=== PATIENT | female | born 1970 | race Caucasian/White ===

== ENCOUNTER 2021-11-07 08:22 | Inpatient (IN) | payer SELFPAY ==
[2021-11-07] MEDS ORDERED: MORPHINE 4 MG/ML SYR ONE ×2 (08:49→10:47)
[2021-11-07] MEDS ORDERED: ONDANSETRON 4 MG/2 ML VIAL ONE ×3 (08:50→15:20)
[2021-11-07] MEDS ORDERED: NA CHLORIDE 0.9% 1,000 ML ONE ×3 (08:50→10:33)
[2021-11-07 09:16] LABS: Absolute Lymphocytes (CBC) 2.5 K/uL (0.7-4.9); Hematocrit 43.1 % (36.0-45.0); Lymphocytes % 12.5 % (15.3-44.8); MPV 8.3 fL (7.6-11.3); RBC Red Blood Cell Count 4.55 M/uL (3.86-4.86)
[2021-11-07] MEDS ORDERED: MORPHINE 2 MG/ML SYR ONE (09:17)
[2021-11-07] MEDS ORDERED: PANTOPRAZOLE 40 MG INJ ONE (09:17)
[2021-11-07 09:26] LABS: Albumin 3.9 g/dL (3.4-5.0); Bilirubin Total 0.8 mg/dL (0.2-1.0); Potassium 3.7 mmol/L (3.5-5.1); Protein, Total 7.9 g/dL (6.4-8.2)
--- NOTE | 2021-11-07 10:14 | RAD REPORT ---
EXAM DESCRIPTION: CT - Abdomen Pelvis W Contrast - 11/07/2021 9:59 am CLINICAL HISTORY: Abdominal pain, acute, nonlocalized COMPARISON: CT ABD PELVIS W CONTRAST dated 10/16/2013 TECHNIQUE: Biphasic, helical CT imaging of the abdomen and pelvis was performed following 100 ml non -ionic IV contrast. No oral contrast administered. All CT scans are performed using dose optimization technique as appropriate and may include automated exposure control or mA/KV adjustment according to patient size. FINDINGS: No suspicious findings in the lung bases. The liver, spleen, and pancreas show no suspicious findings. Gallbladder and biliary tree are also wi thout suspicious finding. Symmetric renal function is seen with no hydronephrosis or suspicious renal mass. No pyelonephritis o r acute parenchymal process. No bladder abnormalities. No adrenal abnormalities. Uterus is absent. Ov jose are absent or atrophic. No FUSING MACHINE FEEDER abnormality seen. Stomach and small bowel show no suspicious findings. Appendix is grossly abnormal. There is a 14 mill imeter irregularly-shaped appendicolith at the base. Tip of the cecum shows wall thickening. The retr ocecal appendix is dilated to 13 mm. Additional mineralization is seen in the lumen at the tip of the appendix. Small amount of fluid in stranding are seen in the periappendiceal fatty tissues. Slightly more prominent stranding is seen at the tip of the cecum. No extraluminal air. No abscess or venus p erforation seen. No hernia, mass or bulky lymphadenopathy. No suspicious bony findings. Prominent aortoiliac atherosclerotic calcifications are present. Findings telephoned to doctor Clemens 10:10 a.m. IMPRESSION: Acute appendicitis. The appendix is retrocecal. Fluid and inflammatory stranding seen in the periappendiceal fat. No extraluminal air, abscess or oth er evidence for venus perforation.
[2021-11-07] MEDS ORDERED: PIPERACIL/TAZO 3.375 GM VIAL IV ONE (10:22)
[2021-11-07] MEDS ORDERED: NA CHLORIDE 0.9% 100 ML ONE (10:22)
--- NOTE | 2021-11-07 10:22 | EDPHYS ---
Physician Documentation [facility] [place] Name: Karla Newsome Age: 51 yrs Sex: Female : 1970 Arrival Date: 11/07/2021 Time: 08:26 Bed 6 Private MD: DAVID Physician Henry Clemens HPI: 11/07 08:44 This 51 yrs old Female presents to ER via Ambulatory with complaints of Abdominal Pain, cp Vomiting. 08:44 The patient presents with abdominal pain right lower quadrant. cp 08:45 Onset: The symptoms/episode began/occurred 3 day(s) ago. cp 08:45 The symptoms radiate to left lower quadrant and right flank. Associated signs and cp symptoms: Pertinent positives: nausea and vomiting, Pertinent negatives: blood in stools, chest pain, constipation, diarrhea, dysuria, fever. The symptoms are described as stabbing. Historical: - Allergies: 08:30 No Known Allergies; vg1 - Home Meds: 08:30 None [Active]; vg1 - PMHx: 08:30 cyst on ovary; Hypertension; UTI; vg1 - PSHx: 08:30 section; Total abdominal hysterectomy; bp - Immunization history:: Client reports having NOT received the Covid vaccine. - Social history:: Smoking status: Patient reports the use of cigarette tobacco products, denies chronic smoking, but will smoke occasionally, Patient uses alcohol, occasionally. ROS: 08:50 Constitutional: Negative for body aches, chills, fever. cp 08:50 Eyes: Negative for injury, pain, redness, and discharge. cp 08:50 ENT: Negative for ear pain, sore throat, difficulty swallowing, difficulty handling secretions. 08:50 Cardiovascular: Negative for chest pain, palpitations. 08:50 Respiratory: Negative for cough, shortness of breath, wheezing. 08:50 Abdomen/GI: Positive for abdominal pain, nausea and vomiting, anorexia, Negative for diarrhea, constipation. 08:50 : Negative for urinary symptoms, flank pain. 08:50 Neuro: Negative for altered mental status, headache, weakness. 08:50 All other systems are negative. Exam: 08:55 Constitutional: The patient appears in no acute distress, alert, awake, non-toxic, well cp developed, well nourished, uncomfortable. 08:55 Head/Face: Normocephalic, atraumatic. cp 08:55 Eyes: Periorbital structures: appear normal, Conjunctiva: normal, no exudate, no injection, Lids and lashes: appear normal, bilaterally. 08:55 ENT: External ear(s): are unremarkable, Nose: is normal, Mouth: Lips: moist, Oral mucosa: pink and intact, moist, Posterior pharynx: Airway: normal. 08:55 Chest/axilla: Inspection: normal, Palpation: is normal, no crepitus, no tenderness. 08:55 Cardiovascular: Rate: normal, Rhythm: regular. 08:55 Respiratory: the patient does not display signs of respiratory distress, Respirations: normal, no use of accessory muscles, no retractions, labored breathing, is not present, Breath sounds: are clear throughout, no decreased breath sounds, no stridor, no wheezing. 08:55 Abdomen/GI: Inspection: abdomen appears normal, Bowel sounds: active, all quadrants, Palpation: soft, in all quadrants, severe abdominal tenderness, in the right lower quadrant, rebound tenderness, is not appreciated, voluntary guarding, is elicited in the right lower quadrant. 08:55 Back: CVA tenderness, is absent. 08:55 Skin: no rash present. 08:55 Neuro: Orientation: to person, place \\T\\ time. Mentation: is normal, Motor: moves all fours, strength is normal. 10:37 ECG was reviewed by the Attending Physician. cp Vital Signs: 08:29 BP 148 / 79; Pulse 80; Resp 18; Temp 98.8(O); Pulse Ox 100% ; Weight 56.7 kg; Height 5 vg1 ft. 3 in. (160.02 cm); Pain 6/10; 09:30 BP 137 / 75; Pulse 78; Resp 17; Pulse Ox 100% ; bp 11:30 BP 112 / 93; Pulse 59; Resp 16; Pulse Ox 99% ; bp 13:30 BP 106 / 71; Pulse 63; Resp 16; Pulse Ox 99% ; bp 08:29 Body Mass Index 22.14 (56.70 kg, 160.02 cm) vg1 MDM: 08:41 Patient medically screened. cp 09:00 Differential diagnosis: appendicitis, diverticulitis, non-specific abd pain, cp Pyelonephritis, Ureterolithiasis, urinary tract infection, colitis. 10:15 Data reviewed: vital signs, nurses notes, lab test result(s), radiologic studies, CT cp scan. 10:15 Counseling: I had a detailed discussion with the patient and/or guardian regarding: the cp historical points, exam findings, and any diagnostic results supporting the discharge/admit diagnosis, lab results, radiology results, the need for further work-up and treatment in the hospital. Response to treatment: the patient's symptoms have mildly improved after treatment. Physician consultation: Reji Melgar MD was called at 10:10, was contacted at 10:10, regarding admission, to the telemetry unit. patient's condition, would like admission per Dr. Geremias Mcghee. 11/07 08:41 Order name: CBC with Diff; Complete Time: 09:33 bp 11/07 09:33 Interpretation: Normal except: WBC 19.8; DEREK% 77.3; LYM% 12.5; NEUT A 15.3; MNA 1.8. cp 11/07 08:41 Order name: CMP; Complete Time: 09:33 bp 11/07 09:33 Interpretation: Normal except: CL 109; GLUC 119; GFR 85; AST 12; GLOB 4.0; A/G 1.0. cp 11/07 08:41 Order name: Lipase; Complete Time: 09:33 bp 11/07 09:33 Interpretation: Reviewed. cp 11/07 10:18 Order name: PT-INR; Complete Time: 11:22 cp 11/07 10:18 Order name: Ptt, Activated; Complete Time: 11:22 cp 11/07 10:18 Order name: Urine Microscopic Only; Complete Time: 11:22 cp 11/07 08:41 Order name: CT Abd/Pelvis - IV Contrast Only; Complete Time: 11:22 bp 11/07 10:18 Order name: XRAY Chest (1 view); Complete Time: 12:59 cp 11/07 10:32 Order name: COVID-19 SARS RT PCR (Document "Date of Onset" if Symptomatic); Complete cp Time: 12:59 11/07 10:53 Order name: Urine Dipstick-Ancillary; Complete Time: 11:22 EDMS 11/07 08:41 Order name: IV Saline Lock; Complete Time: 09:02 bp 11/07 08:41 Order name: Labs collected and sent; Complete Time: 09:02 bp 11/07 10:18 Order name: EKG; Complete Time: 10:19 cp 11/07 10:18 Order name: EKG - Nurse/Tech; Complete Time: 10:32 cp 11/07 10:18 Order name: Urine Dipstick-Ancillary (obtain specimen); Complete Time: 10:54 cp EC:37 Rate is 62 beats/min. Rhythm is regular. IA interval is normal. QRS interval is normal. cp QT interval is normal. T waves are Inverted in lead aVR. Interpreted by me. Reviewed by me. Administered Medications: 08:50 Drug: NS 0.9% 1000 ml Route: IV; Rate: 1 bolus; Site: right forearm; bp 13:50 Follow up: IV Status: Completed infusion; IV Intake: 1000ml bp 08:50 Drug: Zofran (Ondansetron) 4 mg Route: IVP; Site: right forearm; bp 10:32 Follow up: Response: No adverse reaction bp 08:50 Drug: morphine 4 mg Route: IVP; Infused Over: 4 mins; Site: right forearm; bp 10:32 Follow up: Response: Pain is decreased bp 10:30 Drug: Zosyn (piperacillin-tazobactam) 3.375 grams Route: IVPB; Infused Over: 60 mins; bp Site: right forearm; 13:50 Follow up: IV Status: Completed infusion; IV Intake: 100ml bp 10:30 Drug: NS 0.9% 1000 ml Route: IV; Rate: 100 ml/hr; Site: right forearm; bp 13:50 Follow up: IV Status: Infusion continued upon admission bp 10:45 Drug: morphine 4 mg Route: IVP; Infused Over: 4 mins; Site: right forearm; bp 13:49 Follow up: Response: No adverse reaction; Pain is decreased bp Disposition Summary: 11/07/21 10:22 Hospitalization Ordered Hospitalization Status: Observation cp Location: Telemetry/MedSurg (observation) cp Condition: Stable cp Problem: new cp Symptoms: have improved cp Bed/Room Type: Standard cp Room Assignment: cp Provider: Geremias Mcghee(11/07/21 11:29) cp Diagnosis - Acute appendicitis with localized peritonitis cp Forms: - Medication Reconciliation Form cp - SBAR form cp Signatures: Dispatcher [employer] EDMS Henry Rincon PA PA cp Epifanio Blas RN RN bp Faye Dietz RN RN vg1 Corrections: (The following items were deleted from the chart) 11: 10:22 Reji Melgar cp cp
--- NOTE | 2021-11-07 10:22 | ER ---
Nurse's Notes [facility] [place] Name: Karla Newsome Age: 51 yrs Sex: Female : 1970 Arrival Date: 11/07/2021 Time: 08:26 Bed 6 Private MD: Diagnosis: Acute appendicitis with localized peritonitis Presentation: 11/07 08:29 Chief complaint: Patient states: lower ABD pain x 3 days and NV since last night. vg1 Coronavirus screen: Vaccine status: Patient reports being unvaccinated. Client denies travel out of the [place] in the last 14 days. Ebola Screen: Patient denies exposure to infectious person. Patient denies travel to an Ebola-affected area in the 21 days before illness onset. Initial Sepsis Screen: Does the patient meet any 2 criteria? No. Patient's initial sepsis screen is negative. Does the patient have a suspected source of infection? No. Patient's initial sepsis screen is negative. Risk Assessment: Do you want to hurt yourself or someone else? Patient reports no desire to harm self or others. Onset of symptoms was November 04, 2021. 08:29 Method Of Arrival: Ambulatory vg1 08:29 Acuity: LIOR 3 vg1 Triage Assessment: 08:29 General: Appears uncomfortable, Behavior is calm, cooperative. Pain: Complains of pain vg1 in right lower quadrant and left lower quadrant. GI: Abdomen is flat, Reports nausea, vomiting, Patient currently denies diarrhea. Historical: - Allergies: 08:30 No Known Allergies; vg1 - Home Meds: 08:30 None [Active]; vg1 - PMHx: 08:30 cyst on ovary; Hypertension; UTI; vg1 - PSHx: 08:30 section; Total abdominal hysterectomy; bp - Immunization history:: Client reports having NOT received the Covid vaccine. - Social history:: Smoking status: Patient reports the use of cigarette tobacco products, denies chronic smoking, but will smoke occasionally, Patient uses alcohol, occasionally. Screenin:33 Abuse screen: Denies threats or abuse. Nutritional screening: No deficits noted. ap3 Tuberculosis screening: No symptoms or risk factors identified. Fall Risk None identified. Assessment: 08:30 General: SEE TRIAGE NOTE. bp 09:35 Reassessment: No changes from previously documented assessment. Patient and/or family bp updated on plan of care and expected duration. Pain level reassessed. 09:53 Reassessment: PT TO CT. bp 11:30 Reassessment: No changes from previously documented assessment. Patient and/or family bp updated on plan of care and expected duration. Pain level reassessed. ADMIT IN PROCESS. DR ARRIETA AT B/S. 13:30 Reassessment: SURGERY PENDING. PT LAST PO LAST PM. bp Vital Signs: 08:29 BP 148 / 79; Pulse 80; Resp 18; Temp 98.8(O); Pulse Ox 100% ; Weight 56.7 kg; Height 5 vg1 ft. 3 in. (160.02 cm); Pain 6/10; 09:30 BP 137 / 75; Pulse 78; Resp 17; Pulse Ox 100% ; bp 11:30 BP 112 / 93; Pulse 59; Resp 16; Pulse Ox 99% ; bp 13:30 BP 106 / 71; Pulse 63; Resp 16; Pulse Ox 99% ; bp 08:29 Body Mass Index 22.14 (56.70 kg, 160.02 cm) vg1 ED Course: 08:26 Patient arrived in ED. rg4 08:29 Arm band placed on. vg1 08:30 Triage completed. vg1 08:33 Epifanio Blas, GUILLE is Primary Nurse. bp 08:40 Henry Rincon PA is PHCP. cp 08:41 Henry Clemens MD is Attending Physician. cp 08:50 Inserted saline lock: 20 gauge in right forearm, using aseptic technique. Blood bp collected. 09:39 Patient has correct armband on for positive identification. Bed in low position. Call bp light in reach. Side rails up X2. Adult w/ patient. 10:01 CT Abd/Pelvis - IV Contrast Only In Process Unspecified. EDMS 10:21 Reji Arrieta MD is Hospitalizing Provider. cp 10:43 XRAY Chest (1 view) In Process Unspecified. EDMS 11:29 Geremias Mcghee is Hospitalizing Provider. cp Administered Medications: 08:50 Drug: NS 0.9% 1000 ml Route: IV; Rate: 1 bolus; Site: right forearm; bp 13:50 Follow up: IV Status: Completed infusion; IV Intake: 1000ml bp 08:50 Drug: Zofran (Ondansetron) 4 mg Route: IVP; Site: right forearm; bp 10:32 Follow up: Response: No adverse reaction bp 08:50 Drug: morphine 4 mg Route: IVP; Infused Over: 4 mins; Site: right forearm; bp 10:32 Follow up: Response: Pain is decreased bp 10:30 Drug: Zosyn (piperacillin-tazobactam) 3.375 grams Route: IVPB; Infused Over: 60 mins; bp Site: right forearm; 13:50 Follow up: IV Status: Completed infusion; IV Intake: 100ml bp 10:30 Drug: NS 0.9% 1000 ml Route: IV; Rate: 100 ml/hr; Site: right forearm; bp 13:50 Follow up: IV Status: Infusion continued upon admission bp 10:45 Drug: morphine 4 mg Route: IVP; Infused Over: 4 mins; Site: right forearm; bp 13:49 Follow up: Response: No adverse reaction; Pain is decreased bp Medication: 08:33 VIS not applicable for this client. ap3 Intake: 13:50 IV: 100ml; Total: 100ml. bp 13:50 IV: 1000ml; Total: 1100ml. bp Outcome: 10:22 Decision to Hospitalize by Provider. cp 14:28 Patient left the ED. ll1 Signatures: Dispatcher [employer] EDMS Henry Rincon PA PA cp Dora Dietz rg4 Epifanio Blas RN RN bp Meseret Pineda RN RN ap3 Faye Dietz, RN RN vg1 Consuelo Gorman RN RN ll1 Corrections: (The following items were deleted from the chart) 08:31 08:29 Pulse 80bpm; Resp 18bpm; Pulse Ox 100%; Temp 98.8F Oral; 56.7 kg; Height 5 ft. 3 vg1 in.; BMI: 22.1; Pain 6/10; vg1
[2021-11-07 10:42] LABS: Protime INR 0.99
[2021-11-07 10:53] LABS: Urine Blood 2+ (Negative); Urine Glucose Negative (Negative); Urine Protein Negative (Negative); Urine Specific Gravity <=1.005 (1.005-1.030); Urine pH 5.5 (5.0-7.0)
[2021-11-07 10:54] LABS: Urine RBC <5 /HPF (NONE SEEN)
[2021-11-07 10:55] LABS: Urine Bacteria <20 /HPF (<20)
--- NOTE | 2021-11-07 12:43 | RAD REPORT ---
EXAM DESCRIPTION: RAD - Chest Single View - 11/07/2021 10:42 am CLINICAL HISTORY: pre op Chest pain. COMPARISON: No comparisons FINDINGS: Portable technique limits examination quality. The lungs are grossly clear. The heart is normal in size. No displaced fractures. IMPRESSION: No acute intrathoracic process suspected.
[2021-11-07] MEDS ORDERED: Ringers Lactate 0 ML IV ONE (14:04)
[2021-11-07] MEDS ORDERED: ONDANSETRON 4 MG/2 ML VIAL IV PRN (14:39)
[2021-11-07] MEDS ORDERED: MORPHINE 2 MG/ML SYR IV PRN (14:39)
[2021-11-07] MEDS: BUPIVACAINE 0.25% PF 10 ML VIAL ONE ×2 (14:57→16:19)
--- NOTE | 2021-11-07 15:05 | P.HP ---
Certification for Inpatient Patient admitted to: Inpatient With expected LOS: >2 Midnights Practitioner: I am a practitioner with admitting privileges, knowledge of patient current condition, hospital course, and medical plan of care. Services: Services provided to patient in accordance with Admission requirements found in Title 42 Section 412.3 of the Code of Federal Regulations Patient History Date of Service: 11/07/21 Reason for admission: Abdominal pain History of Present Illness: 51-year-old woman with a history of hypertension presented to the emergency department with a complaint of abdominal pain of onset 3 days ago. Patient reports abdominal pain became much severe last night, associated with vomiting, no fever or diarrhea. Patient presented to the ED this morning where CT abdomen pelvis reported acute appendicitis. General surgeon-Dr. Melgar contacted who is planning lap appendectomy. Patient admitted for further management. Allergies No Known Allergies Allergy (Unverified 08/30/17 23:26) - Past Medical/Surgical History -: Hypertension - Family History Brother -: Cancer Sister -: Cancer (Breast) - Social History Smoking Status: Current some day smoker Alcohol use: Yes CD- Drugs: No Place of Residence: Home Review of Systems Other: Except as documented, all other systems reviewed and negative. Physical Examination - Vital Signs Temperature: 98.8 F Blood Pressure: 106/71 Pulse: 63 Respirations: 16 - Physical Exam General: Alert, In no apparent distress, Oriented x3 HEENT: PERRLA, Mucous membr. moist/pink, Sclerae nonicteric Neck: Supple, JVD not distended Respiratory: Clear to auscultation bilaterally, Normal air movement Cardiovascular: No edema, Regular rate/rhythm, Normal S1 S2 Capillary refill: <2 Seconds Gastrointestinal: Normal bowel sounds, Non-distended, Tenderness (Right lower quadrant) Musculoskeletal: No swelling, No tenderness Integumentary: No rashes, No cyanosis Neurological: Normal strength at 5/5 x4 extr, Cranial nerves 3-12 intact Lymphatics: No axilla or inguinal lymphadenopathy - Studies Laboratory Data (last 24 hrs) 11/07/21 10:28: PT 10.9, INR 0.99, APTT 32.8 11/07/21 08:50: Sodium 138, Potassium 3.7, BUN 9, Creatinine 0.83, Glucose 119 H, Total Bilirubin 0.8, AST 12 L, ALT 21, Alkaline Phosphatase 89, Lipase 114 11/07/21 08:50: WBC 19.8 H, Hgb 14.9, Hct 43.1, Plt Count 375 Assessment and Plan - Problems (Diagnosis) (1) Acute appendicitis Current Visit: Yes Status: Acute (2) Leukocytosis Current Visit: Yes Status: Acute - Plan Admit to the medical floor. Supportive measures with IV fluid. N.p.o. Start IV [place] General surgery-Dr. Melgar consulted who is planning lap appendectomy today. Pain management Antiemetics. - Advance Directives Does patient have a Living Will: No Does patient have a Durable POA for Healthcare: No
[2021-11-07] MEDS ORDERED: propofoL 200 MG/20 ML VIAL IV ONE (15:18)
[2021-11-07] MEDS ORDERED: LIDOCAINE JELLY 2%- 5 ML TUBE ONE (15:19)
[2021-11-07] MEDS ORDERED: LIDOCAINE 1% MPF 5 ML VIAL ONE (15:19)
[2021-11-07] MEDS ORDERED: ROCURONIUM 50 MG/5 ML VIAL IV ONE (15:19)
[2021-11-07] MEDS ORDERED: FENTANYL CITR 100 MCG/2 ML ONE ×2 (15:19→16:45)
[2021-11-07] MEDS ORDERED: KETOROLAC 30 MG/ML INJ ONE (15:20)
[2021-11-07] MEDS ORDERED: dexAMETHasone 10 MG/ML VIAL ONE (15:20)
[2021-11-07] MEDS ORDERED: GLYCOPYRROLATE 0.2 MG/ML SYR ONE ×2 (16:32→16:51)
[2021-11-07] MEDS ORDERED: HYDRALAZINE HCL 20 MG/ML VIAL ONE (16:37)
--- NOTE | 2021-11-07 16:57 | P.OP ---
Preoperative diagnosis: Acute non-perforated Appendicitis Postoperative diagnosis: Acute non-perforated Appendicitis Primary procedure: Laparoscopic appendectomy Anesthesia: GETA + Local Estimated blood loss: <5cc Specimen: vermiform appendix Findings: inflammed thickened appendicitis with inflammatory rind Complications: None Transferred to: Recovery Room Condition: Good
[2021-11-07] MEDS: ONDANSETRON 4 MG/2 ML VIAL ONE ×2 (17:10→17:15)
[2021-11-07] MEDS: HYDROMORPHONE HCL 1 MG/ML INJ ONE ×6 (17:12→17:33)
[2021-11-07 18:02] VITALS: BMI 22.1
[2021-11-07] MEDS: NA CHLORIDE 0.9% 1,000 ML IV SCH (18:04)
[2021-11-07] MEDS: PIPER TAZO 3.375 GM in NA CHLORIDE 0.9% 100 ML IV SCH (18:04)
[2021-11-07] MEDS ORDERED: DIPHENHYDRAMINE 25 MG TAB/CAP PO PRN (19:33)
--- NOTE | 2021-11-07 20:15 | CON ---
Date of Consultation: 11/07/2021 Reason For Consultation: Appendicitis. Brief History Of Present Illness: The patient is a 51-year-old female who presents to the hospital with complaints of abdominal pain beginning approximately 3 days ago. It was in the periumb ilical, now located in the right lower quadrant, associated with some nausea and vomiting. She denie d blood in her stool or sick contacts. No recent travel. No food exposures. Past Medical History: Significant for hypertension, urinary tract infections. Past Surgical History: She has had a and hysterectomy, which was a total abdominal hystere ctomy. Allergies: NO KNOWN DRUG ALLERGIES. Home Medications: Include [id number] vitamins, she cannot recall the details, which. Smoking, she is an active everyday cigarette smoker. She denies alcohol or recreational drug use. Review of Systems: Ten-point review of systems other than HPI, denies. Physical Examination: General: She is awake, alert, and oriented. Psychiatric: She is appropriate, conversive. HEENT: She is normocephalic. Sclerae anicteric. Mucous membranes moist. Oropharynx clear. Neck: Supple without JVD. Chest: Normal to expansion and excursion. Cardiovascular: Regular rate and rhythm. Pulmonary: Clear to auscultation bilaterally. Abdomen: Soft. Positive right lower quadrant tenderness to palpation. Positive focal peritonitis i n [place] point. Well-healed surgical scars were evident. Extremities: No clubbing, cyanosis, or edema. Skin: Warm and dry. Laboratory Data: Reveals a white count 19.8, hemoglobin is 14.9, hematocrit 43.1, platelet count was 375, neutrophils 77%. PT 10.9, INR 0.9, PTT 32.8. Sodium 138, potassium 3.7, chloride 109, carbon dioxide 21, BUN 9, creatinine 0.8, glucose is 119, total bilirubin 0.8, AST 12, ALT 21, alkaline phos phatase 89, lipase is 114. COVID was negative. She had imaging performed, which included a CT of e abdomen and pelvis, officially read as acute appendicitis. Appendix is retrocecal fluid and inflam matory stranding in the periappendiceal fat. No extra luminal air, abscess, or other evidence for fr ank perforation. It is approximately 14 mm and dilated appendicolith at the base. There is retrocec al appendix dilated to 13 mm. Assessment And Plan: This is a 51-year-old female, who comes in with signs and symptoms of acute non perforated appendicitis. 1.IV fluids. 2.Antibiotic coverage. 3.I have explained the risks, benefits, and alternatives of laparoscopic possible open appendectomy including, but not limited to bleeding, infection, damage to surrounding tissues, need for further op eration and procedures. The patient agrees to proceed as indicated. KRISS/SANGEETHA Voice ID: [id number] Report ID: [id number]
[2021-11-07] MEDS: HYDROCODONE/APAP 5/325 MG TAB PO PRN (21:02)
[2021-11-08] MEDS: NA CHLORIDE 0.9% 1,000 ML IV SCH ×2 (01:28→10:39)
[2021-11-08] MEDS: PIPER TAZO 3.375 GM in NA CHLORIDE 0.9% 100 ML IV SCH ×2 (01:29→08:04)
[2021-11-08] MEDS: HYDROCODONE/APAP 5/325 MG TAB PO PRN ×2 (03:02→08:14)
--- NOTE | 2021-11-08 03:21 | OP ---
Date of Procedure: 11/07/2021 Surgeon: Reji Melgar MD, Preoperative Diagnosis: Acute nonperforated appendicitis. Postoperative Diagnosis: Acute nonperforated appendicitis. Procedure Performed: Laparoscopic appendectomy. Anesthesia: General endotracheal plus local. Estimated Blood Loss: Less than 5 mL. Specimen: Vermiform appendix. Findings: Inflamed and thickened appendicitis with inflammatory rind quite thickened and retrocecal position. Complications: None. Disposition: The patient was transferred to recovery room in good condition. Procedure In Detail: After informed consent was obtained, the patient was brought to the operating r oom, prepped and draped in the usual sterile fashion after adequate anesthesia achieved. A supraumbi lical area was anesthetized with 0.25% Marcaine, sharply incised. A 5 mm trocar was placed under dir ect visualization without evidence of complication. Two additional trocars placed, 1 in the left low er quadrant and another in the right lower quadrant. These were both 5 mm trocars placed under direc t visualization without evidence of complication. The umbilical trocar was then up-sized to 12 mm un rachna direct visualization without evidence of complication. The patient was positioned head down righ t side up position. Ratcheted grasper was used to grasp the patient's appendix from the right lower quadrant. Dissection was continued down. There was significant thick and inflammatory rind requirin g LigaSure dissection to allow for mesoappendiceal window creation. It was difficult to get past the inflammatory rind, as such I fired a MARSHAL purple load 60 stapler across the appendix and took out the midportion of the appendix to allow for easier mobilization as it was quite tortuous, thickened and stuck to the surrounding tissues. After this was removed, placed in EndoCatch and sent to the pathol ogist for examination. I then returned to the peritoneal space. Re-insufflation was obtained at thi s point. I then created a mesoappendiceal window with a Nesha retractor. Endo-MARSHAL purple load 45 was fired across the base of the appendix at the confluence of the cecum with good apposition of the tissues. The mesoappendix was taken down in its entirety using the LigaSure device. The appendiceal base was then placed in EndoCatch bag, removed from the umbilical trocar site, and sent out for path ological examination. At this point, the area was copiously irrigated and suctioned out completely d ry. No hemostatic maneuvers were required. The clips and staple lines were found to be in good jojo omic position. At this point, the patient was positioned back neutral position. Effluent was suctio ernesto out. The umbilical trocar was closed using a Brian-Raya suture passer with 0 Vicryl in a fa shion and good approximation of tissues. The remaining skin was then copiously irrigated out. The a bdomen was completely desufflated under direct visualization without evidence of complication. Both specimens were passed off to the back table at this point to be sent off the pathologist in the indiv idual EndoCatch bags. After the skin incisions copiously irrigated, they were closed with interrupte d aisha. The patient tolerated the procedure without evidence of complication and transferred to P ACU in good condition. All counts were correct at end of the case. KRISS/SANGEETHA Voice ID: [id number] Report ID: [id number]
[2021-11-08 04:14] LABS: Hematocrit 34.9 % (36.0-45.0)
[2021-11-08 04:15] LABS: Lymphocytes % 6.6 % (15.3-44.8); MPV 8.4 fL (7.6-11.3)
[2021-11-08 04:22] LABS: Albumin 2.9 g/dL (3.4-5.0); Bilirubin Total 0.5 mg/dL (0.2-1.0); Magnesium 1.8 mg/dL (1.8-2.4); Phosphorus 3.3 mg/dL (2.5-4.9); Potassium 3.6 mmol/L (3.5-5.1); Protein, Total 6.2 g/dL (6.4-8.2)
[2021-11-08] MEDS ORDERED: MAGNESIUM SULFATE 1 gm IVPB 1 GM/100 ML BAG IV ONE (08:00)
[2021-11-08] MEDS ORDERED: POTASSIUM CL SA 10 MEQ TAB PO ONE (09:00)
[2021-11-08 10:13] VITALS: BP 140/70; TEMP 97.5
[2021-11-08 10:30] VITALS: O2SAT 96
--- NOTE | 2021-11-09 12:54 | EKG ---
Test Date: 2021-11-07 Test Time: 10:30:51 History Tutor: JANINA MEASUREMENT RESULTS: Intervals: Rate: 62 RI: 126 QRSD: 78 QT: 424 QTc: 430 Newcomb: P: 25 RI: 126 QRS: -2 T: 24 INTERPRETIVE STATEMENTS: Normal sinus rhythm Normal ECG Compared to ECG 08/30/2017 21:12:14 No significant changes Electronically Signed On 11-09-21 12:52:51 CDT by Waqas Gill
--- NOTE | 2021-11-10 20:53 | P.DS ---
Admission Date: 11/07/21 Discharge Date: 11/08/21 Disposition: ROUTINE DISCHARGE Discharge Condition: FAIR Reason for Admission: Abdominal pain - Problems (1) Acute appendicitis Status: Acute (2) Leukocytosis Status: Acute Brief History of Present Illness: 51-year-old woman with a history of hypertension presented to the emergency department with a complaint of abdominal pain of onset 3 days ago. Patient reports abdominal pain became much severe last night, associated with vomiting, no fever or diarrhea. Patient presented to the ED this morning where CT abdomen pelvis reported acute appendicitis. General surgeon-Dr. Melgar contacted for lap appendectomy. Patient admitted for further management. Hospital Course: Patient admitted to the medical floor and started on IV antibiotics. She was also treated with supportive measures with IV fluids and antiemetics. She was seen by Dr. Melgar who performed lap appendectomy. Surgery was uneventful. Patient was discharged to home after the surgery. Vital Signs/Physical Exam: Temp Pulse Resp BP Pulse Ox 97.5 F 65 18 140/70 95 11/08/21 08:10 11/08/21 08:10 11/08/21 08:14 11/08/21 08:10 11/08/21 08:14 Laboratory Data at Discharge: WBC 14.8 K/uL (4.3-10.9) H D 11/08/21 03:40 Hgb 11.6 g/dL (12.0-15.0) L D 11/08/21 03:40 Hct 34.9 % (36.0-45.0) L D 11/08/21 03:40 Plt Count 288 K/uL (152-406) D 11/08/21 03:40 PT 10.9 SECONDS (9.5-12.5) 11/07/21 10:28 INR 0.99 11/07/21 10:28 APTT 32.8 SECONDS (24.3-36.9) 11/07/21 10:28 Sodium 138 mmol/L (136-145) 11/08/21 03:40 Potassium 3.6 mmol/L (3.5-5.1) 11/08/21 03:40 BUN 6 mg/dL (7-18) L 11/08/21 03:40 Creatinine 0.72 mg/dL (0.55-1.3) 11/08/21 03:40 Glucose 129 mg/dL (74-106) H 11/08/21 03:40 Phosphorus 3.3 mg/dL (2.5-4.9) 11/08/21 03:40 Magnesium 1.8 mg/dL (1.8-2.4) 11/08/21 03:40 Total Bilirubin 0.5 mg/dL (0.2-1.0) 11/08/21 03:40 AST 14 U/L (15-37) L 11/08/21 03:40 ALT 16 U/L (12-78) 11/08/21 03:40 Alkaline Phosphatase 68 U/L (45-117) 11/08/21 03:40 Lipase 114 U/L (73-393) 11/07/21 08:50 Home Medications: Amox/Clavulanate [Augmentin 875-125 Tab] 1 each PO BID #14 tab 11/08/21 Hydrocodone 5/APAP 325 [[place] 5/325*] 1 tab PO Q6H PRN #12 tab 11/08/21 New Medications: Amox/Clavulanate [Augmentin 875-125 Tab] 1 each PO BID #14 tab Hydrocodone 5/APAP 325 [[place] 5/325*] 1 tab PO Q6H PRN #12 tab PRN Reason: Pain Scale 5-7 (Moderate) Diet: Regular Activity: No lifting more than 10 lbs Followup: Reji Melgar MD [ACTIVE - CAN ADMIT] - 1-2 Weeks (CAll to schedule an appointment) NONE,NONE [Primary Care Provider] - 1-2 Weeks (CAll to schedule an appointment)
== END 2021-11-08 11:55 | disposition home or self-care (01) | DRG 343 ==
LOC: ER 08:22 → ERHOLD 13:24 → 4TH 15:23
PROVIDERS: ADMIT Internal Medicine; ATTEND Internal Medicine
PROC: 0DTJ4ZZ Resection of Appendix, Percutaneous Endoscopic Approach (ICD-10-PCS; principal; 2021-11-07 15:15)
DX: K35.80 Unspecified acute appendicitis (principal); I10 Essential (primary) hypertension; Z20.822 Contact with and (suspected) exposure to COVID-19; F17.210 Nicotine dependence, cigarettes, uncomplicated
CPT/HCPCS: 36415; 71045; 74177; 80053; 81003; 81015; 83690; 83735; 84100; 85025; 85610; 85730; 88304; 93005; 94010; 96361; 96365; 96366; 96375; 99284; C9113; J0360; J1100; J1170; J2270; J2405; J2543; J2704; J3010; J3475; J7030; J7120; Q9967; U0003

== ENCOUNTER 2022-05-15 08:36 | Emergency (ER) | payer OTHER, SELFPAY ==
[2022-05-15 10:13] LABS: SARS-COV-2 RT PCR POSITIVE (NEGATIVE)
--- NOTE | 2022-05-15 10:17 | ER ---
Nurse's Notes [facility] Name: Karla Carrier Age: 51 yrs Sex: Female : 1970 Arrival Date: 05/15/2022 Time: 08:40 Bed Treatment Private MD: Diagnosis: SARS-associated coronavirus as the cause of diseases classified elsewhere;Irritable bowel syndrome with diarrhea Presentation: 05/15 09:06 Chief complaint: Patient states: Bright red blood in stools since yesterday. Pt c/o ss pain in low back. Coronavirus screen: Client denies travel out of the [place] in the last 14 days. Ebola Screen: Patient denies exposure to infectious person. Patient denies travel to an Ebola-affected area in the 21 days before illness onset. Initial Sepsis Screen: Does the patient meet any 2 criteria? No. Patient's initial sepsis screen is negative. Does the patient have a suspected source of infection? No. Patient's initial sepsis screen is negative. Risk Assessment: Do you want to hurt yourself or someone else? Patient reports no desire to harm self or others. Onset of symptoms was May 14, 2022. 09:06 Method Of Arrival: Ambulatory ss 09:06 Acuity: LIOR 3 ss KITCHEN WORKER: 13:21 LMP N/A - Post-menopause kb3 Historical: - Allergies: 09:08 No Known Allergies; ss - PMHx: 09:08 cyst on ovary; Hypertension; UTI; ss - PSHx: 09:08 section; Total abdominal hysterectomy; ss - Immunization history:: Adult Immunizations up to date, Client reports receiving the 2nd dose of the Covid vaccine, Last tetanus immunization: unknown. - Social history:: Smoking status: Patient reports the use of cigarette tobacco products, smokes one-half pack cigarettes per day, Patient uses alcohol, only on a social basis. Screenin:30 Abuse screen: Denies threats or abuse. Denies injuries from another. Nutritional kb3 screening: No deficits noted. Tuberculosis screening: No symptoms or risk factors identified. Fall Risk None identified. Assessment: 12:30 Reassessment: Patient appears in no apparent distress at this time. General: Appears in kb3 no apparent distress. Behavior is calm, cooperative. 12:30 Pain: Complains of pain in chest Pain does not radiate. Pain currently is 4 out of 10 kb3 on a pain scale. Quality of pain is described as aching, with cough and deep breath Pain began 05/04/2022 Is episodic. 12:30 Respiratory: Reports cough that is dry, pain with cough Airway is patent Respiratory kb3 effort is even, unlabored, Respiratory pattern is regular, Breath sounds are clear. GI: Bowel sounds present X 4 quads. Abd is soft and non tender Reports diarrhea, rectal bleeding. Vital Signs: 09:06 BP 148 / 105; Pulse 85; Resp 16; Temp 97.5(TE); Pulse Ox 99% on R/A; Weight 54.43 kg; ss Height 5 ft. 3 in. (160.02 cm); Pain 4/10; 13:22 BP 135 / 91; Pulse 80; Resp 20; Pulse Ox 98% ; kb3 09:06 Body Mass Index 21.26 (54.43 kg, 160.02 cm) ED Course: 08:40 Patient arrived in ED. am2 09:08 Triage completed. ss 09:08 Arm band placed on right wrist. ss 09:23 Eun Larose FNP-C is PHCP. snw 09:23 Leon Redman MD is Attending Physician. snw 09:43 XRAY Chest Pa And Lat (2 Views) In Process Unspecified. EDMS 11:27 CBC with Diff Sent. zm 11:27 CMP Sent. zm 11:27 Lipase Sent. zm 11:27 Inserted saline lock: 20 gauge in left antecubital area, using aseptic technique. Blood zm collected. 12:30 Patient has correct armband on for positive identification. Bed in low position. Call kb3 light in reach. Warm blanket given. 12:30 No provider procedures requiring assistance completed. kb3 12:57 Lola Avelar, RN is Primary Nurse. kb3 13:22 IV discontinued, intact, bleeding controlled, No redness/swelling at site. Pressure kb3 dressing applied. Administered Medications: No medications were administered Medication: 12:30 VIS not applicable for this client. kb3 Outcome: 10:16 Discharge ordered by . snw 13:22 Discharged to home ambulatory. kb3 13:22 Condition: stable 13:22 Discharge instructions given to patient, family, Instructed on discharge instructions, follow up and referral plans. medication usage, Demonstrated understanding of instructions, follow-up care, medications, Prescriptions given X 5 13:23 Patient left the ED. kb3 Signatures: Dispatcher [employer] EDMS Eun Larose, FRUCTOSE LOADER-C FRUCTOSE LOADER-Csnw Adrianne Madrid, RN RN Meseret Virgen Zaina zm Bradberry, Kelly, RN RN kb3 Corrections: (The following items were deleted from the chart) 13:21 13:19 Pain: Complains of pain in chest Pain does not radiate. Pain currently is 4 out kb3 of 10 on a pain scale. Quality of pain is described as aching, with cough and deep breath Pain began 05/04/2022 Is episodic, kb3
--- NOTE | 2022-05-15 10:17 | EDPHYS ---
Physician Documentation [facility] Name: Karla Newsome Age: 51 yrs Sex: Female : 1970 Arrival Date: 05/15/2022 Time: 08:40 Bed Treatment Private MD: ED Physician Leon Redman HPI: 05/15 09:50 This 51 yrs old Female presents to ER via Ambulatory with complaints of Rectal Bleeding.snw 09:50 The patient presents to the emergency department with bleeding from the rectum/anus, snw that is moderate. Onset: The symptoms/episode began/occurred suddenly, 2 day(s) ago, and became persistent. Context: the patient has no known special context relating to the rectal area complaint(s). Modifying factors: The symptoms are alleviated by nothing, The symptoms are aggravated by nothing. Associate signs and symptoms: Pertinent positives: denies. The patient has experienced a previous episode. The patient has not recently seen a physician. pt denies medications except multivitamins and minerals, sometimes takes aleve. 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 - Social history:: Smoking status: Patient reports the use of cigarette tobacco products, smokes one-half pack cigarettes per day, Patient uses alcohol, only on a social basis. ROS: 09:49 Constitutional: Negative for fever, chills, and weight loss, Eyes: Negative for injury, snw pain, redness, and discharge, ENT: Negative for injury, pain, and discharge, Neck: Negative for injury, pain, and swelling, Cardiovascular: Negative for chest pain, palpitations, and edema, Back: Negative for injury and pain, : Negative for injury, bleeding, discharge, and swelling, MS/Extremity: Negative for injury and deformity, Skin: Negative for injury, rash, and discoloration, Neuro: Negative for headache, weakness, numbness, tingling, and seizure. 09:49 Respiratory: Positive for cough. 09:49 Abdomen/GI: Positive for abdominal cramps, bright red rectal bleeding. Exam: 09:49 Constitutional: This is a well developed, well nourished patient who is awake, alert, snw and in no acute distress. Head/Face: Normocephalic, atraumatic. Eyes: Pupils equal round and reactive to light, extra-ocular motions intact. Lids and lashes normal. Conjunctiva and sclera are non-icteric and not injected. Cornea within normal limits. Periorbital areas with no swelling, redness, or edema. ENT: Nares patent. No nasal discharge, no septal abnormalities noted. Tympanic membranes are normal and external auditory canals are clear. Oropharynx with no redness, swelling, or masses, exudates, or evidence of obstruction, uvula midline. Mucous membranes moist. Neck: Trachea midline, no thyromegaly or masses palpated, and no cervical lymphadenopathy. Supple, full range of motion without nuchal rigidity, or vertebral point tenderness. No Meningismus. Chest/axilla: Normal chest wall appearance and motion. Nontender with no deformity. No lesions are appreciated. Cardiovascular: Regular rate and rhythm with a normal S1 and S2. No gallops, murmurs, or rubs. Normal PMI, no JVD. No pulse deficits. Respiratory: Lungs have equal breath sounds bilaterally, clear to auscultation and percussion. No rales, rhonchi or wheezes noted. No increased work of breathing, no retractions or nasal flaring. wet sounding cough Abdomen/GI: Soft, non-tender, with normal bowel sounds. No distension or tympany. No guarding or rebound. No evidence of tenderness throughout. pt in lobby, unable to do rectal exam for guaiac presently Back: No spinal tenderness. No costovertebral tenderness. Full range of motion. Skin: Warm, dry with normal turgor. Normal color with no rashes, no lesions, and no evidence of cellulitis. MS/ Extremity: Pulses equal, no cyanosis. Neurovascular intact. Full, normal range of motion. Neuro: Awake and alert, GCS 15, oriented to person, place, time, and situation. Cranial nerves II-XII grossly intact. Motor strength 5/5 in all extremities. Sensory grossly intact. Cerebellar exam normal. Normal gait. Vital Signs: 09:06 BP 148 / 105; Pulse 85; Resp 16; Temp 97.5(TE); Pulse Ox 99% on R/A; Weight 54.43 kg; ss Height 5 ft. 3 in. (160.02 cm); Pain 4/10; 13:22 BP 135 / 91; Pulse 80; Resp 20; Pulse Ox 98% ; kb3 09:06 Body Mass Index 21.26 (54.43 kg, 160.02 cm) ss MDM: 09:23 Patient medically screened. snw 10:17 Data reviewed: vital signs, nurses notes. Data interpreted: Pulse oximetry: on room air snw is 99 %. Interpretation: normal. Counseling: I had a detailed discussion with the patient and/or guardian regarding: the historical points, exam findings, and any diagnostic results supporting the discharge/admit diagnosis. 05/15 09:11 Order name: COVID-19/FLU A+B; Complete Time: 10:15 ss 05/15 09:13 Order name: CBC with Diff; Complete Time: 11:44 ss 05/15 09:13 Order name: CMP; Complete Time: 11:53 ss 05/15 09:13 Order name: Lipase; Complete Time: 11:53 ss 05/15 09:13 Order name: XRAY Chest Pa And Lat (2 Views); Complete Time: 10:28 ss 05/15 09:13 Order name: IV Saline Lock; Complete Time: 11:27 ss 12 09:13 Order name: Labs collected and sent; Complete Time: 11:27 ss 05/15 09:13 Order name: Urine Dipstick-Ancillary (obtain specimen); Complete Time: 11:39 ss 12 11:40 Order name: Urine Dipstick-Ancillary; Complete Time: 11:44 EDMS Administered Medications: No medications were administered Disposition: 19:20 Co-signature as Attending Physician, Leon Redman MD I agree with the assessment and rt plan of care. Disposition Summary: 05/15/22 10:16 Discharge Ordered Location: Home snw Condition: Stable snw Diagnosis - SARS-associated coronavirus as the cause of diseases classified elsewhere snw - Irritable bowel syndrome with diarrhea snw Followup: snw - With: Emergency Department - When: As needed - Reason: Worsening of condition Followup: snw - With: Private Physician - When: 5 - 6 days - Reason: Recheck today's complaints, Continuance of care, Re-evaluation by your physician Discharge Instructions: - Discharge Summary Sheet snw - Aspirin and Your Heart snw - COVID-19 snw - 10 Things You Can Do to Manage Your COVID-19 Symptoms at Home - [facility] snw - COVID-19: Quarantine vs. Isolation - [facility] snw Forms: - Medication Reconciliation Form snw - Thank You Letter snw - Work release form snw - Antibiotic Education snw - Prescription Opioid Use snw Prescriptions: - acetylcysteine (bulk) - take 600 milligram by ORAL route once daily; 90 capsule; Refills: 0, Product snw Selection Permitted - Zyrtec 10 mg Oral Tablet - take 1 tablet by ORAL route once daily As needed; 20 tablet; Refills: 0, snw Product Selection Permitted - Pepcid 20 mg Oral Tablet - take 1 tablet by ORAL route once daily; 20 tablet; Refills: 0, Product snw Selection Permitted - Zithromax 500 mg Oral Tablet - take 1 tablet by ORAL route once daily for 5 days; 5 tablet; Refills: 0, snw Product Selection Permitted - Prednisone 20 mg Oral Tablet - take 2 tablets by ORAL route once daily for 5 days; 10 tablet; Refills: 0, snw Product Selection Permitted Signatures: Dispatcher [employer] EDEun Holt, CONCESSIONIST-C CONCESSIONIST-Csnw Adrianne Madrid RN RN ss Lola Avelar RN RN kb3 Leon Redman MD MD rt
--- NOTE | 2022-05-15 10:25 | RAD REPORT ---
EXAM DESCRIPTION: RAD - Chest Pa And Lat (2 Views) - 05/15/2022 9:41 am CLINICAL HISTORY: COUGH Chest pain. COMPARISON: Chest Single View dated 11/07/2021 FINDINGS: The lungs are mildly emphysematous but clear. The heart is upper limit of normal in size. No displaced fractures. IMPRESSION: Mild COPD.
[2022-05-15 11:35] LABS: Absolute Lymphocytes (CBC) 2.1 K/uL (0.7-4.9); Hematocrit 43.3 % (36.0-45.0); Lymphocytes % 29.2 % (15.3-44.8); MCV 95.4 fL (80-100); MPV 8.8 fL (7.6-11.3); RBC Red Blood Cell Count 4.54 M/uL (3.86-4.86)
[2022-05-15 11:40] LABS: Urine Blood 1+ (Negative); Urine Glucose Negative (Negative); Urine Protein Negative (Negative)
[2022-05-15 11:51] LABS: Albumin 4.2 g/dL (3.4-5.0); Bilirubin Total 0.3 mg/dL (0.2-1.0); Potassium 3.7 mmol/L (3.5-5.1)
[2022-05-15 14:29] VITALS: TEMP 97.5
[2022-05-15 15:04] VITALS: BP 135/91; O2SAT 98
== END 2022-05-15 13:23 | disposition home or self-care (01) ==
LOC: ER 08:36
DX: U07.1 COVID-19 (principal); K58.0 Irritable bowel syndrome with diarrhea; I10 Essential (primary) hypertension; F17.210 Nicotine dependence, cigarettes, uncomplicated
CPT/HCPCS: 85025; 36415; 81003; 83690; 80053; 0240U; 71046; 99284

== ENCOUNTER 2024-08-26 23:09 | Emergency (ER) | payer OTHER, SELFPAY ==
--- OUTSIDE RECORDS SUMMARY | 2024-08-26 23:11 | XMS REPORT | Continuity of Care Document ---
Author Name Unknown Address [address] [place] [address] [facility] Address [address] [place] [address] Care Team Providers Care Manufacturing Lab Technician Name Role Phone Sandy Sexton Attending Clinician Unavailable Encounters Start Date/Time End Date/Time Encounter Type Admission Type Attending Clinicians Care Facility Care Department Encounter ID Source 2022-11-10 08:15:01 Outpatient Sandy Sexton [facility] [id number] [facility] 2022-08-12 12:27[facility] [id number] [facility]
--- NOTE | 2024-08-26 23:22 | ER ---
Nurse's Notes [facility] Name: Karla Newsome Age: 54 yrs Sex: Female : 1970 Arrival Date: 08/26/2024 Time: 23:09 Bed Waiting Private MD: Diagnosis: Edema of right upper eyelid Presentation: 08/26 23:15 Chief complaint: Patient states: woke up this morning with red, swollen, painful right me1 eye. Denies injury. Coronavirus screen: Vaccine status: Patient reports being unvaccinated. Ebola Screen: No symptoms or risks identified at this time. Initial Sepsis Screen: Does the patient meet any 2 criteria? HR > 90 bpm. Does the patient have a suspected source of infection? No. Patient's initial sepsis screen is negative. Risk Assessment: Do you want to hurt yourself or someone else? Patient reports no desire to harm self or others. Onset of symptoms was August 26, 2024 at 08:00. 23:15 Method Of Arrival: Ambulatory [facility] 23:15 Acuity: LIOR 4 me1 Triage Assessment: 23:18 General: Appears in no apparent distress. Behavior is calm, cooperative, appropriate me1 for age. Pain: Complains of pain in right eye Pain does not radiate. Pain currently is 4 out of 10 on a pain scale. Quality of pain is described as tender, Pain began this morning Is continuous. EENT: Eyes redness, swelling and pain to periorbital area. Reports pain in right eye photophobia in right eye. Neuro: Level of Consciousness is awake, alert, obeys commands, Oriented to person, place, time, situation, Appropriate for age. Cardiovascular: Patient's skin is warm and dry. Respiratory: Airway is patent Respiratory effort is even, unlabored, Respiratory pattern is regular, symmetrical. GI: No signs and/or symptoms were reported involving the gastrointestinal system. : No signs and/or symptoms were reported regarding the genitourinary system. Derm: Skin is intact, is healthy with good turgor, Skin is pink, warm \T\ dry. Musculoskeletal: No signs and/or symptoms reported regarding the musculoskeletal system. 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 - Infectious Disease History:: Denies. - Social history:: Smoking status: Reported history of juuling and/or vaping. Screenin:20 [facility] ED Fall Risk Assessment (Adult) History of falling in the last 3 months, me1 including since admission No falls in past 3 months (0 pts) Confusion or Disorientation No (0 pts) Intoxicated or Sedated No (0 pts) Impaired Gait No (0 pts) Mobility Assist Device Used No (0 pt) Altered Elimination No (0 pt) Score/Fall Risk Level 0 - 2 = Low Risk Maintained a safe environment, Provided non-skid footwear, Hourly rounding (assess needs \T\ fall precautionary measures) done. Abuse screen: Denies threats or abuse. Nutritional screening: No deficits noted. Tuberculosis screening: No symptoms or risk factors identified. Assessment: 23:20 General: See triage assessment. me1 Vital Signs: 23:15 BP 151 / 99; Pulse 90; Resp 17; Temp 98.1; Pulse Ox 98% ; Weight 62.14 kg; Height 5 ft. me1 3 in. ; Pain 4/10; 23:15 Body Mass Index 24.27 (62.14 kg, 160.02 cm) me1 23:15 Pain Scale: Adult me1 ED Course: 23:11 Patient arrived in ED. jj6 23:13 Jaci Ely FNP-C is [facility]. kb 23:13 Lucio Velazquez MD is Attending Physician. kb 23:18 Triage completed. me1 23:18 Arm band placed on Patient placed in waiting room. me1 23:20 Patient has correct armband on for positive identification. Provided Education on: POC. me1 Verbalized understanding.. 23:20 No provider procedures requiring assistance completed. Patient did not have IV access me1 during this emergency room visit. 23:27 Ana Rivera, RN is Primary Nurse. me1 Administered Medications: 23:26 Drug: HYDROcodone-acetaminophen PO 5 mg-325 mg 1 tabs PO once Route: PO; me1 23:27 Follow up: Response: No adverse reaction me1 23:26 Drug: Famotidine PO 20 mg PO once Route: PO; me1 23: Follow up: Response: No adverse reaction me1 23: Drug: diphenhydrAMINE PO 25 mg PO once Route: PO; me1 : Follow up: Response: No adverse reaction me1 : Drug: Doxycycline PO 100 mg PO once Route: PO; me1 : Follow up: Response: No adverse reaction me1 Medication: 23:20 VIS not applicable for this client. me1 Outcome: :22 Discharge ordered by MD. arvizu :28 Discharged to home ambulatory, with significant other, me1 : Condition: stable : Discharge instructions given to patient, significant other, Instructed on discharge instructions, follow up and referral plans. medication usage, Demonstrated understanding of instructions, follow-up care, medications, Prescriptions given X : Patient left the ED. me1 Signatures: Jaci Ely, DYE JIG OPERATOR-C REBECA-Kassandra Servin [email or web address] Ana Rivera, GUILLE RN me1
--- NOTE | 2024-08-26 23:23 | EDPHYS ---
Physician Documentation [facility] Name: Karla Newsome Age: 54 yrs Sex: Female : 1970 Arrival Date: 08/26/2024 Time: 23:09 Bed Waiting Private MD: ED Physician Lucio Velazquez HPI: 08/26 23:36 This 54 yrs old Female presents to ER via Ambulatory with complaints of Eye Problem. kb 23:36 Patient is a 54-year-old female who presents for pain and swelling to right eyelid that kb radiates to right nondenominational that started upon waking this morning. Denies any injury or trauma. Denies pain to the eye itself. Denies cough, congestion, fever.. 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 - Infectious Disease History:: Denies. - Social history:: Smoking status: Reported history of juuling and/or vaping. ROS: 23:36 Constitutional: As per HPI kb Exam: 23:36 Constitutional: This is a well developed, well nourished patient who is awake, alert, kb and in no acute distress. Head/Face: Normocephalic, atraumatic. ENT: Moist Mucous membranes Cardiovascular: Regular rate Respiratory: Respirations even and unlabored. No increased work of breathing. Talking in full sentences Skin: Warm, dry with normal turgor. Normal color. MS/ Extremity: Pulses equal, no cyanosis. Neurovascular intact. Full, normal range of motion. Neuro: Awake and alert, GCS 15, oriented to person, place, time, and situation. 23:36 Eyes: Pupils: equal, round, and reactive to light and accomodation, Extraocular movements: intact throughout, Conjunctiva: normal, Lids and lashes: edema, of the right eye, erythema, on the right, Vital Signs: 23:15 BP 151 / 99; Pulse 90; Resp 17; Temp 98.1; Pulse Ox 98% ; Weight 62.14 kg; Height 5 ft. me1 3 in. ; Pain 4/10; 23:15 Body Mass Index 24.27 (62.14 kg, 160.02 cm) me1 23:15 Pain Scale: Adult me1 MDM: 23:13 Medical Screening Exam initiated kb 23:37 Differential diagnosis: Allergic dermatitis, cellulitis. Data reviewed: vital signs, kb nurses notes. Counseling: I had a detailed discussion with the patient and/or guardian regarding the historical points, exam findings, and any diagnostic results supporting the discharge/admit diagnosis, the need for outpatient follow up, a family practitioner, to return to the emergency department if symptoms worsen or persist or if there are any questions or concerns that arise at home. Administered Medications: 23:26 Drug: HYDROcodone-acetaminophen PO 5 mg-325 mg 1 tabs PO once Route: PO; me1 23:27 Follow up: Response: No adverse reaction me1 23:26 Drug: Famotidine PO 20 mg PO once Route: PO; me1 23:27 Follow up: Response: No adverse reaction me1 23:26 Drug: diphenhydrAMINE PO 25 mg PO once Route: PO; me1 23:27 Follow up: Response: No adverse reaction me1 23:26 Drug: Doxycycline PO 100 mg PO once Route: PO; me1 23:27 Follow up: Response: No adverse reaction me1 Disposition: 08/27 01:08 Co-signature as Attending Physician, Lucio Velazquez MD I agree with the assessment sp4 and plan of care. I reviewed the patient's care provided by the Advanced Practice Provider and agree with the diagnosis and treatment plan. Disposition Summary: 08/26/24 23:22 Discharge Ordered Notes: Location: Home kb Condition: Stable kb Diagnosis - Edema of right upper eyelid kb Followup: kb - With: Emergency Department - When: As needed - Reason: Worsening of condition Followup: kb - With: Private Physician - When: 2 - 3 days - Reason: Recheck today's complaints, Continuance of care, Re-evaluation by your physician Discharge Instructions: - Discharge Summary Sheet kb - Cellulitis, Adult, [id number] kb Forms: - Medication Reconciliation Form kb - Antibiotic Education kb - Prescription Opioid Use kb - Patient Portal Instructions kb - Leadership Thank You Letter kb Prescriptions: - Doxycycline Hyclate 100 mg Oral Tablet - take 1 tablet ORAL route every 12 hours; 20 tablet; Refills: 0, Product kb Selection Permitted Signatures: Jaci Ely, SUPPORT DBA-C SUPPORT DBA-Ckb Lucio Velazquez MD MD sp4 Ana Rivera, RN RN me1
[2024-08-26] MEDS ORDERED: DOXYCYCLINE 100 MG CAP PO ONE (23:24)
[2024-08-26] MEDS ORDERED: DIPHENHYDRAMINE 25 MG TAB/CAP ONE (23:24)
[2024-08-26] MEDS ORDERED: HYDROCODONE/APAP 5/325 MG TAB ONE (23:24)
[2024-08-26] MEDS ORDERED: FAMOTIDINE 20 MG TAB ONE (23:24)
[2024-08-26 23:32] VITALS: BP 151/99; TEMP 98.1; O2SAT 98
== END 2024-08-26 23:28 | disposition home or self-care (01) ==
LOC: ER 23:09
DX: R60.0 Localized edema (principal)
CPT/HCPCS: 99283

== ENCOUNTER 2025-03-09 17:27 | Emergency (ER) | payer OTHER ==
--- OUTSIDE RECORDS SUMMARY | 2025-03-09 17:29 | XMS REPORT | Continuity of Care Document ---
Author Name Unknown Address [address] [place] [address] [facility] Address [address] [place] [address] Care Team Providers Care [employer] Officer Name Role Phone Sandy Sexton Attending Clinician Unavailable Encounters Start Date/Time End Date/Time Encounter Type Admission Type Attending Clinicians Care Facility Care Department Encounter ID Source 2022-11-10 08:15:01 Outpatient Sandy Sexton [facility] [id number] [facility] 2022-08-12 12:27[id number] [facility]
[2025-03-09 18:41] LABS: Absolute Lymphocytes (CBC) 2.8 K/uL (0.7-4.9); Hematocrit 38.7 % (36.0-45.0); Hemoglobin 13.5 g/dL (12.0-15.0); MCH 32.3 pg (27.0-35.0); MCHC 34.9 g/dL (32.0-36.0); MCV 92.6 fL (80-100); MPV 7.8 fL (7.6-11.3); Nucleated RBC Absolute Count 0.0 (0-0); Nucleated Red Blood Cells % 0.1 % (0-0); RBC Red Blood Cell Count 4.18 M/uL (3.86-4.86); White Blood Count 9.20 thou/uL (4.3-10.9)
[2025-03-09 18:44] LABS: Sqamous Epithelial None Seen /HPF (None Seen); Urine Culture Reflex Order NOT NEEDED; Urine Microscopic Reflex YN ORDER UMIC
[2025-03-09 19:03] LABS: ALT/SGPT 37.0 U/L (13-56); AST/SGOT 21.0 U/L (15-37); Albumin 3.9 g/dL (3.4-5.0); Albumin/Globulin Ratio 1.1 (1.1-1.8); Alkaline Phosphatase 75.0 U/L (45-117); Anion Gap 10.5 mEq/L (5.0-15.0); BUN Blood Urea Nitrogen 16.0 mg/dL (7-18); Globulin 3.7 g/dL (2.3-3.5); Glucose Level 96.0 mg/dL (74-106); Lipase 42.0 U/L (13-75); Potassium 3.5 mEq/L (3.5-5.1)
--- NOTE | 2025-03-09 19:46 | RAD REPORT ---
Stone Protocol CLINICAL INDICATION: Female, 54 years old.ABD PAIN TECHNIQUE: CT abdomen and pelvis was performed, without IV contrast, as per department protocol using a CT stone protocol. Axial, sagittal and coronal reconstructions were obtained. One or more of the following dose reduction techniques were used: Automated exposure control, adjustment of the mA and/o r kV according to the patient size, and/or iterative reconstruction. Unless otherwise specified, incidental findings do not require dedicated imaging follow-up. [id number]. IV CONTRAST: Not administered. COMPARISON: 11/07/2021 FINDINGS: The lack of intravenous contrast limits the sensitivity of this exam for evaluation of solid visceral organs, vascular structures, and retroperitoneum. LOWER CHEST: No acute process identified. No significant pericardial effusion. Mild coronary artery c alcifications. Mild circumferential thickening of the distal esophagus which could reflect esophagitis. UPPER GI: No significant abnormality. LIVER: No significant focal abnormality. GALLBLADDER/BILE DUCTS: No biliary ductal dilatation.? PANCREAS: No mass, ductal dilation, or yadira-pancreatic fluid. SPLEEN: Unremarkable. ADRENALS: No adrenal masses. KIDNEYS AND URETERS: No hydronephrosis. Limited evaluation for renal lesions in the absence of IV con trast. No renal calculi. No ureteral calculi. ABDOMINAL AORTA AND OTHER VESSELS: Moderate atherosclerotic changes without aortic aneurysm. PERITONEUM: No abnormal free fluid. No free air. LYMPH NODES: No pathologic lymphadenopathy. ABDOMINAL WALL: Unremarkable SMALL BOWEL/COLON: Small bowel has normal course and caliber. No colonic wall thickening or pericolon ic inflammatory changes. Appendix absent. URINARY BLADDER: Underdistended but grossly unremarkable. REPRODUCTIVE ORGANS: Uterus surgically absent. No adnexal abnormality. MUSCULOSKELETAL: No acute or suspicious osseous abnormality. ADDITIONAL FINDINGS: None. IMPRESSION: No acute findings within the abdomen or pelvis. No urinary tract calculi.
[2025-03-09] MEDS ORDERED: ONDANSETRON 4 MG/2 ML VIAL ONE (19:47)
[2025-03-09] MEDS ORDERED: KETOROLAC 30 MG/ML INJ ONE (19:47)
[2025-03-09] MEDS ORDERED: MORPHINE 4 MG/ML SYR ONE (19:47)
--- NOTE | 2025-03-09 19:52 | ER ---
Nurse's Notes [facility] Name: Karla Newsome Age: 54 yrs Sex: Female : 1970 Arrival Date: 03/09/2025 Time: 17:27 Bed 19 Private MD: Diagnosis: Abdominal pain, Generalized Presentation: 03/09 17:32 Chief complaint: Patient states: HAVING RT LOWER BACK PAIN THAT RADIATES TO RT LOWER dd2 QUADRANT X3 DAYS. PT REPORTS URINARY FREQUENCY. DENIES N/V, BURNING WITH URINATION. Coronavirus screen: At this time, the client does not indicate any symptoms associated with coronavirus-19. Ebola Screen: No symptoms or risks identified at this time. Initial Sepsis Screen: Does the patient meet any 2 criteria? No. Patient's initial sepsis screen is negative. Does the patient have a suspected source of infection? No. Patient's initial sepsis screen is negative. Risk Assessment: Do you want to hurt yourself or someone else? Patient reports no desire to harm self or others. Onset of symptoms was March 07, 2025. 17:32 Method Of Arrival: Ambulatory dd2 17:32 Acuity: LIOR 3 dd2 Triage Assessment: 17:34 General: Appears in no apparent distress. uncomfortable, Behavior is calm, cooperative, dd2 appropriate for age. Pain: Complains of pain in right low back Pain radiates to right lower quadrant. : Reports pain in right lower quadrant(s) in lower back urinary frequency. Musculoskeletal: Circulation, motion, and sensation intact. Range of motion: intact in all extremities. 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 - Infectious Disease History:: Denies. - Social history:: Smoking status: Patient denies any tobacco usage or history of. Screenin:07 [facility] ED Fall Risk Assessment (Adult) History of falling in the last 3 months, kj2 including since admission No falls in past 3 months (0 pts) Confusion or Disorientation No (0 pts) Intoxicated or Sedated No (0 pts) Impaired Gait No (0 pts) Mobility Assist Device Used No (0 pt) Altered Elimination No (0 pt) Score/Fall Risk Level 0 - 2 = Low Risk Maintained a safe environment, Hourly rounding (assess needs \T\ fall precautionary measures) done. Abuse screen: Denies threats or abuse. Denies injuries from another. Nutritional screening: No deficits noted. Tuberculosis screening: No symptoms or risk factors identified. Assessment: 19:07 General: Appears in no apparent distress. Behavior is cooperative. Pain: Complains of kj2 pain in right low back Pain currently is 6 out of 10 on a pain scale. Neuro: Level of Consciousness is awake, alert, obeys commands, Oriented to person, place, time, situation. Cardiovascular: Patient's skin is warm and dry. Respiratory: Airway is patent Respiratory effort is unlabored. GI: No signs and/or symptoms were reported involving the gastrointestinal system. : No signs and/or symptoms were reported regarding the genitourinary system. Vital Signs: 17:32 BP 139 / 85; Pulse 79; Resp 16; Temp 97.6; Pulse Ox 97% on R/A; Weight 61.23 kg; Height dd2 5 ft. 3 in. ; Pain 5/10; 19:15 BP 104 / 58; Pulse 70; Resp 18; Pulse Ox 95% on R/A; kj2 20:05 BP 121 / 61; Pulse 70; Resp 20; Temp 9; Pulse Ox 99% on R/A; kj2 17:32 Body Mass Index 23.91 (61.23 kg, 160.02 cm) dd2 17:32 Pain Scale: Adult dd2 ED Course: 17:30 Patient arrived in ED. mr 17:31 Edmund Mcfarland, OIL WELL DIRECTIONAL SURVEYOR-C [facility]. [facility] 17:31 Giles Banks MD is Attending Physician. dr5 17:34 Triage completed. dd2 17:34 Arm band placed on right wrist. dd2 18:35 Initial lab(s) drawn, by me, sent to lab. Inserted saline lock: 20 gauge in right rk3 forearm, using aseptic technique. Blood collected. Flushed with 10 mL NS. 18:35 CBC with Diff Sent. rk3 18:35 CMP Sent. rk3 18:35 Lipase Sent. rk3 18:36 Test, Urine Sent. rk3 18:36 UA Rfx Teodoro Cult if indicated Sent. rk3 19:06 Rebeca Ramon, RN is Primary Nurse. kj2 19:09 Patient has correct armband on for positive identification. Bed in low position. Call kj2 light in reach. Adult w/ patient. Provided Education on: call light. 19:35 CT Stone Protocol In Process Unspecified. EDMS 20:06 No provider procedures requiring assistance completed. IV discontinued, intact, kj2 bleeding controlled, No redness/swelling at site. Pressure dressing applied. Administered Medications: 19:53 Drug: morphine IVP or IV 4 mg IVP once over 4 mins Route: IVP; Infused Over: 4 mins; kj2 Site: right forearm; 20:06 Follow up: Response: No adverse reaction kj2 19:53 Drug: Ondansetron IVP 4 mg IVP once; over 2 minutes Route: IVP; Site: right forearm; kj2 20:07 Follow up: Response: No adverse reaction kj2 19:54 Drug: Ketorolac IVP 15 mg IVP once Route: IVP; Site: right forearm; kj2 20:07 Follow up: Response: No adverse reaction kj2 Medication: 20:05 VIS not applicable for this client. kj2 Outcome: 19:51 Discharge ordered by . dr5 20:06 Discharged to home ambulatory, with family, kj2 20:06 Condition: stable 20:06 Discharge instructions given to patient, Instructed on discharge instructions, follow up and referral plans. Demonstrated understanding of instructions, follow-up care, 20:07 Patient left the ED. kj2 Signatures: Dispatcher [employer] EDID Ladan Beavers, Reg Reg mr Rebeca Ramon, RN RN kj2 LINDA MACKENZIE RN RN dd2 Edmund Mcfarland, OIL WELL DIRECTIONAL SURVEYOR-C OIL WELL DIRECTIONAL SURVEYOR-5 Kenisha Felder rk3 Corrections: (The following items were deleted from the chart) 17:34 17:34 Home Meds: None; dd2 dd2
--- NOTE | 2025-03-09 19:52 | EDPHYS ---
Physician Documentation [facility] Name: Karla Newsome Age: 54 yrs Sex: Female : 1970 Arrival Date: 03/09/2025 Time: 17:27 Bed 19 Private MD: ED Physician Giles Banks HPI: 03/09 19:18 This 54 yrs old Female presents to ER via Ambulatory with complaints of Back dr5 Pain. 19:18 The patient presents with pain that is acute. Onset: The symptoms/episode dr5 began/occurred 3 day(s) ago. Patient is a 54-year-old female with history of hypertension and UTIs coming in with right flank pain that is been constant for the past 3 days. Patient reports urinary frequency. Patient denies taking medication prior to arrival. Patient denies chest pain, shortness of breath, nausea, vomiting, diarrhea.. 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 - Infectious Disease History:: Denies. - Social history:: Smoking status: Patient denies any tobacco usage or history of. ROS: 19:18 Constitutional: as per hpi dr5 Exam: 19:22 Constitutional: This is a well developed, well nourished patient who is awake, alert, dr5 and in no acute distress. Head/Face: Normocephalic, atraumatic. Eyes: Pupils equal round and reactive to light, extra-ocular motions intact. Lids and lashes normal. Conjunctiva and sclera are non-icteric and not injected. Cornea within normal limits. Periorbital areas with no swelling, redness, or edema. Neck: Trachea midline, no thyromegaly or masses palpated, and no cervical lymphadenopathy. Supple, full range of motion without nuchal rigidity, or vertebral point tenderness. No Meningismus. Chest/axilla: Normal chest wall appearance and motion. Nontender with no deformity. No lesions are appreciated. Cardiovascular: Regular rate and rhythm with a normal S1 and S2. Normal PMI, no JVD. No pulse deficits. Respiratory: Lungs have equal breath sounds bilaterally, clear to auscultation. No rales, rhonchi or wheezes noted. No increased work of breathing, no retractions or nasal flaring. Abdomen/GI: Soft, non-tender, non-distended Back: No spinal tenderness. No costovertebral tenderness. Full range of motion. Skin: Warm, dry with normal turgor. Normal color with no rashes, no lesions, and no evidence of cellulitis. MS/ Extremity: Pulses equal, no cyanosis. Neurovascular intact. Full, normal range of motion. Neuro: Awake and alert, GCS 15, oriented to person, place, time, and situation. Cranial nerves II-XII grossly intact. Motor strength 5/5 in all extremities. Sensory grossly intact. Cerebellar exam normal. Normal gait. Vital Signs: 17:32 BP 139 / 85; Pulse 79; Resp 16; Temp 97.6; Pulse Ox 97% on R/A; Weight 61.23 kg; Height dd2 5 ft. 3 in. ; Pain 5/10; 19:15 BP 104 / 58; Pulse 70; Resp 18; Pulse Ox 95% on R/A; kj2 20:05 BP 121 / 61; Pulse 70; Resp 20; Temp 9; Pulse Ox 99% on R/A; kj2 17:32 Body Mass Index 23.91 (61.23 kg, 160.02 cm) dd2 17:32 Pain Scale: Adult dd2 MDM: 17:31 Medical Screening Exam initiated dr5 19:41 Differential diagnosis: arthritis, Fatigue sprain. Data reviewed: vital signs, nurses dr5 notes, lab test result(s), amylase and lipase, CBC, white blood cell count, hemoglobin, hematocrit, platelets, electrolytes, sodium, potassium, chloride, serum bicarbonate, BUN, creatinine, serum glucose, urinalysis, radiologic studies, CT scan. Consideration of Admission/Observation Escalation of care including admission/observation considered. Escalation considered if patient had an obstructed kidney stone. 19:42 I considered the following discharge prescriptions or medication management in the [facility] emergency department I discussed and recommended Over The Counter medications, Medications were administered in the Emergency Department. See MAR. Independent interpretation of the following test(s) in the Emergency Department CT Scan: My interpretation is Independent interpretation of CT scan does not show kidney stone. Historians other than the Patient: Spouse/Significant Other: Spouse. Care significantly affected by the following chronic conditions: Hypertension, UTI. Care significantly affected by the following Social Determinants of Health: Poor access to healthcare and/or lack of insurance, Poor access to transportation, Problems related to employment. Counseling: I had a detailed discussion with the patient and/or guardian regarding the historical points, exam findings, and any diagnostic results supporting the discharge/admit diagnosis, the presence of at least one elevated blood pressure reading (>120/80) during this emergency department visit, lab results, radiology results, the need for outpatient follow up, for definitive care, a family practitioner, to return to the emergency department if symptoms worsen or persist or if there are any questions or concerns that arise at home. Medication response: Response to treatment: the patient's symptoms have resolved after treatment, the patient is now symptom free. Special discussion: I discussed with the patient/guardian in detail that at this point there is no indication for admission to the hospital. It is understood, however, that if the symptoms persist or worsen the patient needs to return immediately for re-evaluation. Based on the history and exam findings, there is no indication for further emergent testing or inpatient evaluation. I discussed with the patient/guardian the need to see the primary care provider for further evaluation of the symptoms. 19:56 ED course: No kidney stone noted on CT scan. No abnormalities noted. All labs and CT dr5 scan printed and given to patient. Patient reports he is much better. All questions answered. Strict ER precaution given.. 03/09 17:44 Order name: CBC with Diff; Complete Time: 18:48 dr5 03/09 17:44 Order name: CMP; Complete Time: 19:16 dr5 03/09 17:44 Order name: Lipase; Complete Time: 19:16 dr5 03/09 17:44 Order name: UA Rfx Teodoro Cult if indicated; Complete Time: 18:48 dr5 03/09 17:44 Order name: Test, Urine; Complete Time: 18:48 dr5 03/09 19:17 Order name: CT Stone Protocol; Complete Time: 19:49 dr5 03/09 17:44 Order name: IV Saline Lock; Complete Time: 18:35 dr5 03/09 17:44 Order name: Labs collected and sent; Complete Time: 18:35 dr5 Administered Medications: 19:53 Drug: morphine IVP or IV 4 mg IVP once over 4 mins Route: IVP; Infused Over: 4 mins; kj2 Site: right forearm; 20:06 Follow up: Response: No adverse reaction kj2 19:53 Drug: Ondansetron IVP 4 mg IVP once; over 2 minutes Route: IVP; Site: right forearm; kj2 20:07 Follow up: Response: No adverse reaction kj2 19:54 Drug: Ketorolac IVP 15 mg IVP once Route: IVP; Site: right forearm; kj2 20:07 Follow up: Response: No adverse reaction kj2 Disposition Summary: 03/09/25 19:51 Discharge Ordered Notes: Location: Home dr5 Condition: Stable dr5 Diagnosis - Abdominal pain, Generalized dr5 Followup: dr5 - With: Emergency Department - When: As needed - Reason: Worsening of condition Followup: dr5 - With: Private Physician - When: 1 - 2 days - Reason: Recheck today's complaints, Continuance of care, Re-evaluation by your physician Discharge Instructions: - Discharge Summary Sheet dr5 - Abdominal Pain, Adult dr5 Forms: - Medication Reconciliation Form dr5 - Prescription Opioid Use dr5 - Patient Portal Instructions dr5 - Leadership Thank You Letter dr5 Prescriptions: - Zofran 4 mg Oral Tablet - take 1 tablet ORAL route every 12 hours As needed; 20 tablet; Refills: 0, dr5 Product Selection Permitted - Tramadol 50 mg Oral Tablet - take 1 tablet ORAL route every 8 hours as needed; 12 tablet; Refills: 0, dr5 Product Selection Permitted Signatures: Dispatcher [employer] EDMS Rebeca Ramon RN RN kj2 LINDA MACKENZIE RN RN dd2 Edmund Mcfarland, STAMP COLLECTOR-C STAMP COLLECTOR-Cdr5 Corrections: (The following items were deleted from the chart) 17:34 17:34 Home Meds: None; dd2 dd2 19:17 19:17 Stone Protocol+CT.RAD.BRZ ordered. EDMN EDMS 19:56 19:42 Medication response: dr5 dr5
[2025-03-09 20:19] VITALS: BP 121/61; TEMP 9; O2SAT 99
== END 2025-03-09 20:07 | disposition home or self-care (01) ==
LOC: ER 17:27
DX: R10.84 Generalized abdominal pain (principal); R35.0 Frequency of micturition; I10 Essential (primary) hypertension
CPT/HCPCS: 85025; 81001; 36415; 81025; 83690; 80053; 76377; 74176; 96375; 96374; 99284; J2405; J1885